=== PATIENT | female | born 1970 | race Caucasian/White ===

== ENCOUNTER 2021-12-12 11:04 | Outpatient (CLI) | payer OTHER | END 2021-12-12 11:05 | disposition home or self-care (01) | LOC: BICCT 11:04 | PROVIDERS: ATTEND Internal Medicine Pulmonary Disease | DX: R06.09 Other forms of dyspnea (principal); J84.9 Interstitial pulmonary disease, unspecified | CPT/HCPCS: 71250 ==

== ENCOUNTER 2022-03-07 19:00 | Outpatient (CLI) | payer BC, OTHER | END 2022-03-07 19:01 | disposition home or self-care (01) | LOC: SLEEPLAB 19:00 | PROVIDERS: ATTEND Internal Medicine Pulmonary Disease | DX: G47.33 Obstructive sleep apnea (adult) (pediatric) (principal); E66.9 Obesity, unspecified; R06.83 Snoring; R09.02 Hypoxemia | CPT/HCPCS: 95811 ==